=== PATIENT | female | born 1980 | race American Indian/Alaskan Native ===

== ENCOUNTER 2017-12-18 13:10 | Emergency (ER) | payer MEDICAID ==
--- NOTE | 2017-12-18 18:19 | OBHP ---
Datetime: 12/18/2017 15:30 IP Adm Impression: , intrauterine IP Admit Plan: Observation/Evaluation Admit Comment, IP Provider: Pt is 37 yo f 36wk, With no pmh, uncomplicated , was sent by her care after noting bp of 141/100, 138/100 in the office. Pt have no symptoms at moment , She have denies fever, chill, headache,weakness, numbness, tingling sensation, dizziness, chest pa in, SOB, abd pain ,diarrhea, constipation, dysuria, polyuria or pedal edema. Allergy: none MEd: PMH: none PSH: none OB hx: none Social : denies smoke, drink or drug use. ROS: No pertinent positive other than mentioned in HPI 15:00 Assessment: Pt is 37 yo f 36wk, With no pmh, uncomplicated , was sent by her prenata l care after noting bp of 141/100, 138/100 in the office. Vital : wnl last bp is 128/72 p 87 Pt is lying comfortable in bed with no acute distress Plan Monitor Vitals Monitor for acute changes Monitor strip Order lab if blood pressure goes above threshold The patient has been observed several hours and has been normotensive and asymptomatic. hear t rate has been reactive. The patient is cleared for discharge pre eclamptic precautions provided. F/ U with PMD Pelvic Type - PN: Not Done Extremities - PN: Normal Abdomen - PN: Normal Back - PN: Not Done Breast - PN: Not Done Lungs - PN: Normal Heart - PN: Normal Thyroid - PN: Not Done Neurologic - PN: Normal HEENT - PN: Normal General - PN: Normal FHR - Baseline A Provider: 150 Comments, ACOG Physical Exam: Pt is lying on bed comfortable with no acute distress Heart: s1,s2 heard no murmur or gallop lung : clear in all quadrant Abdomen: Bs+, Nontender Extremities: no pedal edema noted. Gestation - Est Wks by US: 36.0 EGA AdmitDate IP: 35.4 Vital Signs Provider: Reviewed; Within Normal Limits IP Chief Complaint: Signs/Symptoms Gestational HTN NICHD Variability Prov Fetus A: Moderate 6-25bpm NICHD Accel Fetus A IP Provider: 15X15 NICHD Decel Fetus A IP Provider: None Genitourinary Exam: Not Done DTRs - PN: Not Done
[2017-12-18 23:15] VITALS: BP 124/83; PULSE 118; RESP 18; O2SAT 100
== END 2017-12-18 18:00 | disposition home or self-care (01) ==
LOC: H.EROB2 13:10 → MERGE 13:10 → H.EROB 14:42 → H.EROB2 18:00
DX: O26.93 Pregnancy related conditions, unspecified, third trimester (principal); I10 Essential (primary) hypertension; Z3A.36 36 weeks gestation of pregnancy

== ENCOUNTER 2018-01-24 10:47 | Inpatient (IN) | payer MEDICAID ==
[2018-01-24 19:10] VITALS: BMI 29.9
[2018-01-24 19:57] LABS: BASO % 0.5 % (0.0-2.0); EOS # 0.1 K/uL (0.0-0.7); EOS % 1.2 % (0.0-4.0); HEMOGLOBIN 12.8 g/dL (12.0-16.0); LYMPH # 1.9 K/uL (1.0-4.3); LYMPH % 22.8 % (20.0-40.0); MEAN CELL VOLUME 89.3 fl (81.0-99.0); MEAN CORPUSCULAR HEMOGLOBIN 29.9 pg (27.0-31.0); MEAN CORPUSCULAR HGB CONC 33.5 g/dL (33.0-37.0); MEAN PLATELET VOLUME 9.5 fl (7.2-11.7); MONO # 0.7 K/uL (0.0-0.8); MONO % 8.8 % (0.0-10.0); NEUT # 5.5 K/uL (1.8-7.0); NEUT % 66.7 % (50.0-75.0); NRBC % 0.1 % (0.0-0.0); RBC 4.29 Mil/uL (3.80-5.20); RED CELL DISTRIBUTION WIDTH 14.5 % (11.5-14.5); WHITE BLOOD COUNT 8.3 K/uL (4.8-10.8)
[2018-01-24 21:37] LABS: SQUAMOUS EPITHIAL < 1 /hpf (0-5); URINE BACTERIA FEW (<OCC); URINE BILIRUBIN NEGATIVE (NEGATIVE); URINE BLOOD NEGATIVE (NEGATIVE); URINE CLARITY CLEAR (Clear); URINE COLOR STRAW (YELLOW); URINE GLUCOSE (UA) NEG (Normal); URINE LEUKOCYTE ESTERASE NEG Leu/uL (Negative); URINE PROTEIN NEGATIVE (NEGATIVE); URINE UROBILINOGEN 0.2-1.0 mg/dL (0.2-1.0)
[2018-01-24 21:46] LABS: ALB/GLOB RATIO 0.9 (1.0-2.1); ALBUMIN 3.3 g/dL (3.5-5.0); ALT/SGPT 56 U/L (9-52); AST/SGOT 50 U/L (14-36); BLOOD UREA NITROGEN 6 mg/dl (7-17); CALCIUM 9.1 mg/dL (8.4-10.2); GFR NON-AFRICAN AMERICAN > 60; URIC ACID 4.2 mg/Dl (2.2-7.5)
[2018-01-25] MEDS ORDERED: Simethicone 80 mg Chewtab PO PRN (02:02)
--- NOTE | 2018-01-25 09:23 | OBADHP ---
Datetime: 01/24/2018 19:33 Admit Comment, IP Provider: 37 y/o female 40.6wk GA presents to L_D for scheduled IOL due to AMA. Patient denies vaginal bleeding/VFL. Endorses normal movements. Patient denies nausea/vom iting/headache/dizziness. GBS negative. PNC: Dr. Morillo POBHx: , denies any complications during PMHx: none PSHx: none FamHx:Mother has HTN Home rx: Tums and vitamins Allergies:NKDA Social Hx: Denies current tobacco/Etoh/drugs GEN: comfortablem, not in acute distress HEENT: Normocephalic RESP: Clear to auscultation, normal breath sounds. CV: RRR, No murmurs. ABD: Soft, normal BS, suprapubic tenderness : (Chaperoned by Dr. Montes) External genitalia normal, no visible blood. LE: no pedal Edema present, no calf tenderness Neuro: AAOx3 Assessment: 37 y/o female 40.6 wk GA presents for IOL [place]: no contractions SVE: 1 cm cervical dilation, thick, high. BP ranging from 145/98-158/93 Plan - Admit to L_D - EFM and toco monitoring - Initiate labor protocol - CBC ordered - Type and screen ordered - Cervical ripening w/ Cervidil inserted at 20:00 - Can have epidural, anesthesiology consulted - pre-eclampsia work up; CMP/LDH/uric acid/UA ordered Itzel Kumari PGY I OB Hospitalist note: Case rev'd. Pt seen. Agree wth note. Postdate preg - IOL. Condition, IOL, medications, pain management, labor, delivery and discussed with pt. She undestands. MAHNDO Pelvic Type - PN: Not Done Extremities - PN: Normal Abdomen - PN: Normal Back - PN: Normal Breast - PN: Not Done Lungs - PN: Normal Heart - PN: Normal Thyroid - PN: Normal Neurologic - PN: Normal HEENT - PN: Normal General - PN: Normal Weight - Estimated: 3476 Presentation-Admit: Vertex FHR - Baseline A Provider: 145 Membranes, Provider: Intact Contraction Comments Provider: none Gestation - Est Wks by US: 40.6 Pool Provider: Negative IP Hx Assessment: The History has been Reviewed and is Current Vital Signs Provider: Reviewed Vital Signs Provider Details: elevated BP IP Chief Complaint: Scheduled induction of labor NICHD Variability Prov Fetus A: Moderate 6-25bpm NICHD Accel Fetus A IP Provider: 15X15 FHR Category Provider Fetus A: Category I NICHD Decel Fetus A IP Provider: None Dilatation, Provider: 1 Effacement, Provider: 25 Station, Provider: -3 Genitourinary Exam: Normal DTRs - PN: Not Done EGA AdmitDate IP: 40.6 IP Adm Impression: Term, intrauterine ; No Active Labor; Intact Membranes IP Admit Plan: Admit to unit; Initiate labor induction protocol Datetime: 12/18/2017 15:30 Comments, ACOG Physical Exam: Pt is lying on bed comfortable with no acute distress Heart: s1,s2 heard no murmur or gallop lung : clear in all quadrant Abdomen: Bs+, Nontender Extremities: no pedal edema noted.
--- NOTE | 2018-01-25 10:37 | OBPN ---
Datetime: 01/25/2018 10:25 IP Progress Impression: Reassuring heart rate; Reactive non-stress test IP Progress Plan: Continue present management; Induction; Anticipate Vaginal Delivery Presentation-Admit: Vertex IP Progress Note Comment: She feels occ CTX. Cervidil removed. SHe ate bfast and feels fine A: 41w AMA IOL : will continue with Cytotec FHR Category Provider Fetus A: Category I Dilatation, Provider: 1-2 Effacement, Provider: LONG Station, Provider: HIGH NICHD Decel Fetus A IP Provider: None Datetime: 01/24/2018 19:33 Pool Provider: Negative Membranes, Provider: Intact Contraction Comments Provider: none FHR - Baseline A Provider: 145 Gestation - Est Wks by US: 40.6 Weight - Estimated: 3476 Vital Signs Provider: Reviewed Vital Signs Provider Details: elevated BP NICHD Accel Fetus A IP Provider: 15X15 NICHD Variability Prov Fetus A: Moderate 6-25bpm
[2018-01-25] MEDS: Lactated Ringer's 1,000 ML IV SCH (14:15)
[2018-01-25] MEDS ORDERED: Oxytocin 30 UNIT 30 UNITS/500 ML BAG IV ONE ×2 (14:17→20:44)
[2018-01-25] MEDS ORDERED: Magnesium Sulfate 4 gm/100 ml 4 GM/100 ML BAG IV ONE (14:19)
--- NOTE | 2018-01-25 14:22 | OBPN ---
Datetime: 01/25/2018 14:15 IP Progress Impression: Reassuring heart rate; Reactive non-stress test IP Progress Plan: Augmentation; Anticipate Vaginal Delivery Pool Provider: Negative Membranes, Provider: Intact Contraction Comments Provider: 1-3m FHR - Baseline A Provider: 140 Presentation-Admit: Vertex IP Progress Note Comment: Notified that she felt leaking. +CTX after one dose of Cytotec SVE 3cm Latent phase of labor Elevated BP PLAN: discusion with pt...will start Pitocin...MgSO4 seirure prophylaxis NICHD Accel Fetus A IP Provider: 15X15 FHR Category Provider Fetus A: Category I NICHD Variability Prov Fetus A: Moderate 6-25bpm Dilatation, Provider: 3 Effacement, Provider: 50 Station, Provider: -2 NICHD Decel Fetus A IP Provider: None
[2018-01-25] MEDS ORDERED: Magnesium Sul 40GM/1L SW 40 GM/1,000 ML ML IV ONE (14:34)
[2018-01-25] MEDS ORDERED: Fentanyl/Bupivacaine HCl 250 ML EPI ONE (15:00)
[2018-01-26] MEDS ORDERED: Benzocaine/Menthol SPRAY TOP PRN ×3 (02:14→22:15)
[2018-01-26] MEDS ORDERED: Oxycodone/Acetaminophen 5/325 mg Tab PO PRN ×4 (02:14→23:38)
[2018-01-26 04:53] LABS: BASO % 0.3 % (0.0-2.0); EOS # 0.1 K/uL (0.0-0.7); EOS % 0.4 % (0.0-4.0); HEMOGLOBIN 12.4 g/dL (12.0-16.0); LYMPH % 12.8 % (20.0-40.0); MEAN CELL VOLUME 89.5 fl (81.0-99.0); MEAN CORPUSCULAR HEMOGLOBIN 29.6 pg (27.0-31.0); MEAN CORPUSCULAR HGB CONC 33.1 g/dL (33.0-37.0); MEAN PLATELET VOLUME 9.2 fl (7.2-11.7); MONO # 1.2 K/uL (0.0-0.8); MONO % 7.7 % (0.0-10.0); NEUT # 12.4 K/uL (1.8-7.0); NEUT % 78.8 % (50.0-75.0); RBC 4.2 Mil/uL (3.80-5.20); RED CELL DISTRIBUTION WIDTH 14.8 % (11.5-14.5); WHITE BLOOD COUNT 15.7 K/uL (4.8-10.8)
[2018-01-26] MEDS ORDERED: Magnesium Sul 40GM/1L SW 40 GM/1,000 ML ML IV ONE ×2 (14:47→14:50)
[2018-01-26] MEDS: Lactated Ringer's 1,000 ML IV SCH (15:00)
--- NOTE | 2018-01-26 18:38 | OBDS ---
DELIVERY PERSONNEL Delivery Doctor: Adriana Morillo MD Almond Roaster: Stephanie Calabrese RN Anesthesiologist: John Rosales MD MATERNAL INFORMATION Delivery Anesthesia: Epidural Medications in Delivery: Oxytocin, Mag Sulfate Estimated Blood Loss (ml): 200 Placenta Cultured: No Maternal Complications: None Provider Comments: Normal spontaneous vaginal delivery. Patient delivered viable female with Apgars of 9 and 9 at one and 5 minutes respectively. P lacenta delivered spontaneously. No lacerations, perineum intact. Uterus firm and appropriately hemos tatic following delivery. Patient tolerated delivery well. No complications. Estimated blood loss 200 mL. LABOR SUMMARY EDC: 01/18/2018 00:00 No. Babies in Womb: 1 Attempted: No Labor Anesthesia: Epidural LABOR INFORMATION Onset of Labor: 01/25/2018 15:00 Complete Dilatation: 01/25/2018 20:00 Cervical Ripening Agents: Cervidil Other Ripening Agents: cytotec 50 mcg po Oxytocin: Induction Group B Beta Strep: Negative Antibiotics # of Doses: n/a Antibiotics Time of Last Dose: n/a Steroids Given: None Reason Steroids Not Administered: Not Applicable MEMBRANES Membranes Rupture Method: Artificial Rupture of Membranes: 01/25/2018 08:00 Length of Rupture (hrs): 12.62 Amniotic Fluid Color: Light Meconium Amniotic Fluid Amount: Large Amniotic Fluid Odor: Normal STAGES OF LABOR Stage 1 hrs: 5 Stage 1 min: 0 Stage 2 hrs: 0 Stage 2 min: 37 Stage 3 hrs: 0 Stage 3 min: 7 Total Time in Labor hrs: 5 Total Time in Labor min: 44 VAGINAL DELIVERY Episiotomy: None Laceration Extension: N/A Laceration Type: None Laceration Repair: Not Applicable Initial Vag Sponge Count: 5 Final Vag Sponge Count: 5 Initial Vag Sharps Count: 0 Final Vag Sharps Count: 0 Sponge Count Correct: Yes Sharps Count Correct: Yes Count Comment: instrument count correct. BABY A INFORMATION Infant Delivery Date/Time: 01/25/2018 20:37 Method of Delivery: Vaginal Born in Route : No : N/A Forceps: N/A Vacuum Extraction: N/A Shoulder Dystocia : No SHOULDER DYSTOCIA BABY A Delivery Date/Time: 01/25/2018 20:37 PRESENTATION/POSITION BABY A Presentation: Cephalic Cephalic Presentation: Vertex Breech Presentation: N/A PLACENTA INFORMATION BABY A Placenta Delivery Time : 01/25/2018 20:44 Placenta Method of Delivery: Spontaneous Placenta Status: Delivered SCORES BABY A Heart Rate 1 min: >100 bpm Resp Effort 1 min: Good Cry Reflex Irritability 1 min: Cough or Sneeze or Pulls Away Muscle Tone 1 min: Active Motion Color 1 min: Body Deal, Extremities Blue Resuscitation Effort 1 min: Tactile Stimulation SCORE 1 MIN: 9 Heart Rate 5 min: >100 bpm Resp Effort 5 min: Good Cry Reflex Irritability 5 min: Cough or Sneeze or Pulls Away Muscle Tone 5 min: Active Motion Color 5 min: Body Deal, Extremities Blue Resuscitation Effort 5 min: Tactile Stimulation SCORE 5 MIN: 9 INFORMATION BABY A Gestational Age at Delivery: 40.0 Gestational Status: Term Infant Outcome : Liveborn Infant Condition : Stable Infant Sex: Female IDENTIFICATION/MEDS BABY A ID Band Number: [id number] ID Band Location: Left Leg; Left Arm WEIGHT/LENGTH BABY A Infant Birthweight (gms): 3190 Infant Weight (lb): 7 Infant Weight (oz): 0 CORD INFORMATION BABY A No. Cord Vessels: 3 Nuchal Cord : Around Neck x1, Loose Cord Blood Taken: Yes Infant Suction: Mouth; Nose ASSESSMENT BABY A Infant Complications: None Physical Findings at Delivery: Within Normal Limits Respirations: Appears Normal Shipping Manager/ALS Called : No Transferred To: Remains with Mother
[2018-01-26] MEDS ORDERED: Simethicone 80 mg Chewtab PO PRN (22:15)
--- NOTE | 2018-01-26 22:37 | CP.PCM.CON ---
History of Present Illness - History of Present Illness History of Present Illness: Attending: Tristian Davila MD Reason for Consult: Management of Hypertension The Patient was seen and examined on the Testing And Regulating Chief unit HPI: This is a 37 years old Afro-Dominican female with no significant past medical hx, only elevated blood pressure immediately prior to delivery. She was admitted on 01/24/18 and had a normal spontaneous vaginal delivery with epidural on 01/25/18. Since post delivery her blood pressure has been elevated with the SBP in the 150s and Diastolic at high 90s to above 100mmHg. She had received Magnesium Sulfate post , which has been discontinued. She receives Ibuprophen for pain. At this exam she denies headache, dizziness, change in vision, nausea, vomits, SOB, palpitation nor chest pain. No edemas. PMH: no Chronic diseases PSH: D&C SH: Former Smoker; No illegal drug use; no Alcohol use FH: States: No known family hx Allergies: NKDA Medication: Reviewed Review of Systems - Constitutional Constitutional: absent: Anorexia, Chills, Fatigue, Fever, Headache - EENT Eyes: Requires Corrective Lenses. absent: Blurred Vision, Change in Vision, Diplopia Ears: absent: Decreased Hearing, Ear Discharge, Tinnitus Nose/Mouth/Throat: absent: Epistaxis, Nasal Congestion, Nasal Discharge, Sinus Pain, Sinus Pressure - Cardiovascular Cardiovascular: absent: Chest Pain, Dyspnea, Edema - Respiratory Respiratory: absent: Cough, Dyspnea, Wheezing, Stridor - Gastrointestinal Gastrointestinal: absent: Constipation, Diarrhea, Nausea Additional comments: Post abdominal pains - Genitourinary Genitourinary: absent: Dysuria, Flank Pain, Urinary Frequency - Musculoskeletal Musculoskeletal: absent: Muscle Weakness, Myalgias, Neck Pain Additional comments: Pain to the back at site of epidural - Integumentary Integumentary: absent: Pruritus, Rash, Skin Ulcer, Sores, Striae, Swelling - Neurological Neurological: absent: Confusion, Dizziness, Numbness, Focal Weakness, Headaches , Weakness - Psychiatric Psychiatric: absent: Anxiety, Depression, Panic Attacks - Endocrine Endocrine: absent: Palpitations, Polydipsia, Polyphagia, Polyuria - Hematologic/Lymphatic Hematologic: absent: Easy Bleeding, Easy Bruising Past Patient History - Tetanus Immunizations Tetanus Immunization: Unknown - Past Medical History & Family History Past Medical History?: No - Past Social History Smoking Status: Former Smoker Chewing Tobacco Use: No Cigar Use: No Alcohol: None Drugs: Denies - CARDIAC Hx Cardiac Disorders: No - PULMONARY Hx Respiratory Disorders: No - NEUROLOGICAL Hx Neurological Disorder: No - HEENT Hx HEENT Problems: No - RENAL Hx Chronic Kidney Disease: No - ENDOCRINE/METABOLIC Hx Endocrine Disorders: No - HEMATOLOGICAL/ONCOLOGICAL Hx Blood Disorders: No - INTEGUMENTARY Hx Dermatological Problems: No - MUSCULOSKELETAL/RHEUMATOLOGICAL Hx Musculoskeletal Disorders: No - GASTROINTESTINAL Hx Gastrointestinal Disorders: No - GENITOURINARY/GYNECOLOGICAL Hx Genitourinary Disorders: No - PSYCHIATRIC Hx Psychophysiologic Disorder: No Hx Substance Use: No - SURGICAL HISTORY Hx Dilation and Curettage: Yes - ANESTHESIA Hx Anesthesia: No Meds Allergies/Adverse Reactions: Allergies Allergy/AdvReac Type Severity Reaction Status Date / Time No Known Allergies Allergy Verified 09/20/16 18:38 - Medications Medications: Current Medications Benzocaine/Menthol (Dermoplast) 1 sprays TOP Q6 PRN PRN Reason: Perineal Discomfort Magnesium Sulfate (Magnesium Sul 40gm/1l Sw) 40 gm in 1,000 mls @ 50 mls/hr IV .Q20H ONE Stop: 01/27/18 10:49 Last Admin: 01/26/18 15:00 Dose: 50 mls/hr Ibuprofen (Motrin Tab) 600 mg PO Q6 PRN PRN Reason: Pain, Mild (1-3) Oxycodone/Acetaminophen (Percocet 5/325 Mg Tab) 1 tab PO Q4 PRN PRN Reason: Pain, moderate (4-7) Stop: 01/29/18 02:19 Simethicone (Mylicon Chew Tab) 80 mg PO PCHS PRN PRN Reason: Heartburn Physical Exam - Constitutional Appears: No Acute Distress - Head Exam Head Exam: ATRAUMATIC, NORMAL INSPECTION, NORMOCEPHALIC - Eye Exam Eye Exam: EOMI, Normal appearance Pupil Exam: NORMAL ACCOMODATION, PERRL - ENT Exam ENT Exam: Mucous Membranes Moist, Normal Exam, Normal External Ear Exam - Neck Exam Neck exam: Positive for: Full Rom, Normal Inspection. Negative for: Lymphadenopathy, Tenderness - Respiratory Exam Respiratory Exam: Clear to Auscultation Bilateral. absent: Rales, Rhonchi, Wheezes - Cardiovascular Exam Cardiovascular Exam: REGULAR RHYTHM, RRR, +S1, +S2. absent: Gallop, JVD - GI/Abdominal Exam GI & Abdominal Exam: Normal Bowel Sounds, Soft. absent: Mass, Organomegaly - Rectal Exam Rectal Exam: Deferred - Extremities Exam Extremities exam: Positive for: full ROM, normal inspection. Negative for: calf tenderness, joint swelling, pedal edema - Back Exam Back exam: NORMAL INSPECTION. absent: CVA tenderness (L), CVA tenderness (R) - Neurological Exam Neurological exam: Alert, CN II-XII Intact, Oriented x3, Reflexes Normal - Psychiatric Exam Psychiatric exam: Normal Affect, Normal Mood - Skin Skin Exam: Dry, Intact, Normal Color, Warm Results - Vital Signs Recent Vital Signs: Last Vital Signs Temp 98.5 F 01/24/18 20:03 Pulse 88 01/24/18 20:03 Resp 20 01/24/18 20:03 BP 158/93 H 01/24/18 20:03 Pulse Ox 100 01/24/18 20:03 - Labs Result Diagrams: 01/26/18 04:40 01/24/18 21:22 Labs: Laboratory Results - last 24 hr 01/26/18 04:40 WBC 15.7 H D RBC 4.20 Hgb 12.4 Hct 37.6 MCV 89.5 MCH 29.6 MCHC 33.1 RDW 14.8 H Plt Count 225 MPV 9.2 Neut % (Auto) 78.8 H Lymph % (Auto) 12.8 L [place] % (Auto) 7.7 Eos % (Auto) 0.4 Baso % (Auto) 0.3 Neut # (Auto) 12.4 H Lymph # (Auto) 2.0 [place] # (Auto) 1.2 H Eos # (Auto) 0.1 Baso # (Auto) 0.0 Assessment & Plan - Assessment and Plan (Free Text) Assessment: #. Post Hypertension Plan: 37 years old Afro-Dominican female with no significant past medical hx, admitted on 01/24/18 and had a normal spontaneous vaginal delivery with epidural on . Since post delivery her blood pressure has been elevated. She receives Ibuprophen for pain. At this exam she denies headache, dizziness, change in vision, nausea, vomits, SOB, palpitation nor chest pain. No edemas. #. Post Hypertension in patient with no hx of Hypertension ,nor signs of Ecclampsia. This could be normal readjustment of the fluids and sthe patient is on NSAID for pain. - Discontinue Ibuprofen and administer Tylenol for pain. - Treat elevated Blood pressure with labetalol 100mg PO BID - Follow Blood Pressures and adjust Labetalol appropriately. - Patient should follow up Blood pressure after discharge. Robert Peguero MD - Date & Time Date: 01/26/18 Time: 22:37
--- NOTE | 2018-01-27 14:04 | CP.PCM.PN ---
<Taj Mckinley - Last Filed: 01/27/18 14:08> Subjective - Date & Time of Evaluation Date of Evaluation: 01/27/18 Time of Evaluation: 08:00 - Subjective Subjective: Progress note for HTN management Consult Pt is seen and examined with Dr Henry. no acute distress overnight. Pt slept well with no complain. She denies any dizziness, confusion, headache, change in vision, sob, chest pain, abd pain or any other symptoms of concern. Pt would like to go home with baby. Objective - Vital Signs/Intake and Output Vital Signs (last 24 hours): Temp Pulse Resp BP Pulse Ox 98.5 F 88 20 158/93 H 100 01/24/18 20:03 01/24/18 20:03 01/24/18 20:03 01/24/18 20:03 01/24/18 20:03 - Medications Medications: Current Medications Acetaminophen (Tylenol 325mg Tab) 650 mg PO Q4 PRN PRN Reason: Other Benzocaine/Menthol (Dermoplast) 1 sprays TOP Q6 PRN PRN Reason: Perineal Discomfort Labetalol HCl (Trandate) 100 mg PO BID MOISÉS Last Admin: 01/27/18 09:36 Dose: 100 mg Oxycodone/Acetaminophen (Percocet 5/325 Mg Tab) 1 tab PO Q4 PRN PRN Reason: Pain, severe (8-10) Stop: 01/29/18 02:19 Simethicone (Mylicon Chew Tab) 80 mg PO PCHS PRN PRN Reason: Heartburn - Labs Labs: 01/26/18 04:40 01/24/18 21:22 - Constitutional Appears: Well, Non-toxic, No Acute Distress - Head Exam Head Exam: ATRAUMATIC, NORMAL INSPECTION, NORMOCEPHALIC - Eye Exam Eye Exam: EOMI, Normal appearance, PERRL Pupil Exam: NORMAL ACCOMODATION, PERRL - ENT Exam ENT Exam: Mucous Membranes Moist, Normal Exam - Neck Exam Neck Exam: Full ROM, Normal Inspection - Respiratory Exam Respiratory Exam: Clear to Ausculation Bilateral, NORMAL BREATHING PATTERN - Cardiovascular Exam Cardiovascular Exam: REGULAR RHYTHM, +S1, +S2 - GI/Abdominal Exam GI & Abdominal Exam: Soft, Normal Bowel Sounds - Extremities Exam Extremities Exam: Full ROM, Normal Capillary Refill - Back Exam Back Exam: NORMAL INSPECTION. absent: CVA tenderness (L), CVA tenderness (R) - Neurological Exam Neurological Exam: Alert, Awake, Oriented x3 - Psychiatric Exam Psychiatric exam: Normal Affect, Normal Mood Assessment and Plan - Assessment and Plan (Free Text) Assessment: This is a 37 yo female with PMH, admitted to [facility] for delivery, Pt delivered and developed Post HTN. Inpatient team was consulted for HTn management. Pt never had Htn No sign or symptoms of pre-eclampsia/ eclampsia Vitals are wnl, except BP Blood pressure trending down last taken 135/92 at 13:30 Will continue Labetalol 100 mg BID as its safest for breast feeding female. Will give script to go home for 2 weeks Pt should follow up with PMD in 1 week Thank you for the consult, Re-consult if needed. <Raven Henry - Last Filed: 01/27/18 19:02> Objective - Vital Signs/Intake and Output Vital Signs (last 24 hours): Temp Pulse Resp BP Pulse Ox 98.5 F 88 20 158/93 H 100 01/24/18 20:03 01/24/18 20:03 01/24/18 20:03 01/24/18 20:03 01/24/18 20:03 - Labs Labs: 01/26/18 04:40 01/24/18 21:22 Attending/Attestation - Attestation I have personally seen and examined this patient.: Yes I have fully participated in the care of the patient.: Yes I have reviewed all pertinent clinical information, including history, physical exam and plan: Yes Notes (Text): ff up with PMD in 1 wk for BP monitoring and further mgt of HTN
--- NOTE | 2018-01-27 19:26 | OBPPN ---
Datetime: 01/27/2018 11:30 PP Pain Prov: Within normal limits PP Nausea Prov: Present PP Flatus Prov: Yes PP Breasts Prov: Normal PP Lungs Prov: Normal PP Abdomen/Uterus Prov: Normal PP Lochia Prov: Normal PP Extremities Prov: Normal PP Progress Prov: Normal PP Plan Prov: Discharge PP Impression Other Prov: Preeclampsia/PP hypertension PP Progress Note Prov: s: no c/o. denies , blurred vision, right upper quadrant pain, midepigastric pain, scotomata. Impression: hypertension with history of induction for elevated blood pressures consistent with pre eclampsia Plan: Patient discussed with medicine hospitalist and states patient is okay for discharge on labetalol as has been described below 100 mg 1 by mouth twice a day. Hospitals also advised follow-up with her primary care physician in 1- 2 weeks. preeclampsia precautions. IP PP Procedures: None Vital Signs Provider PP: Reviewed Vital Signs Provider Details PP: [phone]
--- NOTE | 2018-01-27 19:28 | OBDCSUM ---
Datetime: 01/27/2018 15:20 Discharged to, Provider: Home Follow up at, Provider: Primary Doctor = Dr Cote and OBGYN= Dr Morillo in a week Disch Instr Activity: Normal activity Disch Instr Diet: Restricted, specify Discharge Diet restrict Prov: low sodium diet Discharge Instructions, Provider: Specific instructions as noted Discharge Diagnosis, Provider: Term Delivered Discharge Time: 01/27/2018 15:21 Disch Activity Restrictions: No exercising; No lifting; Nothing in vagina - [place], tampons, do krish Discharge Comment, Provider: f/u with pcp for bp check in 2wks f/u with dr morillo in 1wk prn/4-6wks for pp check
[2018-01-27 22:29] VITALS: BP 135/92; PULSE 82; RESP 18; TEMP 98.3; O2SAT 99
== END 2018-01-27 17:48 | disposition home or self-care (01) | DRG 372 ==
LOC: H.L&D 19:02 → H.OB/GYN 01-26 20:58
PROVIDERS: ADMIT Obstetrics & Gynecology; ATTEND Obstetrics & Gynecology
PROC: 10E0XZZ Delivery of Products of Conception, External Approach (ICD-10-PCS; principal; 2018-01-25)
PROC: 3E0P7VZ Introduction of Hormone into Female Reproductive, Via Natural or Artificial Opening (ICD-10-PCS; 2018-01-25)
PROC: 10907ZC Drainage of Amniotic Fluid, Therapeutic from Products of Conception, Via Natural or Artificial Opening (ICD-10-PCS; 2018-01-25)
PROC: 4A1HXCZ Monitoring of Products of Conception, Cardiac Rate, External Approach (ICD-10-PCS; 2018-01-25)
DX: O48.0 Post-term pregnancy (principal); O16.5 Unspecified maternal hypertension, complicating the puerperium; O69.81X0 Labor and delivery complicated by cord around neck, without compression, not applicable or unspecified; Z3A.40 40 weeks gestation of pregnancy; Z37.0 Single live birth; O09.523 Supervision of elderly multigravida, third trimester; Z87.891 Personal history of nicotine dependence